=== PATIENT | female | born 1945 | race Caucasian/White ===

== ENCOUNTER 2024-12-04 14:38 | Outpatient (AMB) | payer MEDICARE, SELFPAY ==
--- NOTE | 2024-12-04 14:41 | MHC.OFFVIS ---
Vital Signs 12/04/24 14:43 Height 5 ft 6 in Weight 145 lb BMI 23.4 BP 185/80 H Blood Pressure Location Rt brachial Position Sitting Respiration 16 Pulse 63 Pulse Source Pulse Oximeter Pulse Oximetry (%) 97 Oxygen Delivery Method Room Air Intake Visit Reasons: LEFT HIP PAIN Intake Note: Patient states blood pressure is always high due to pain. Data Center Technician Required: No Accompanied by: Daughter Allergies environmental allergies Allergy (Mild, Verified 12/04/24 14:47) Unknown HPI Comments Details: The patient is a 79-year-old female presenting, accompanied by her daughter, with chronic left hip pain. The pain has been persistent and severe, impacting her daily activities significantly. She has a history of osteoarthritis, rheumatoid arthritis, and sciatica, which have contributed to her current condition. The patient has undergone physical therapy, which she completed despite significant difficulty. She has also tried various medications, including gabapentin, which caused dizziness, and oxycodone, which was ineffective this time. Previous interventions included a cortisone injection in the hip, which did not provide relief. The patient has been diagnosed with hip bursitis and torn tendons. 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 The patient reports that her pain is most severe in the hip and back, with additional discomfort in the groin area when lying down. She has a history of trying various treatments, including acupuncture and a sacroiliac belt, both of which were ineffective. The patient is scheduled for a sacroiliac joint injection tomorrow. Patient has also scheduled to undergo injections for her lower back in the near future. Recent MRI of the hip reviewed, results as per below. Patient is here to follow up with Orthopedic surgeon, has scheduled follow up appointment with them tomorrow. - Onset: Chronic - Quality: Severe and persistent - Primary Location: Left hip - Radiation: Groin area, back - Exacerbating Factors: Lying on the affected side - Relieving Factors: None effective - Interference: Daily activities, sleep - Affect: Pain is causing significant distress and impacting mood. - Analgesia: Current medications include oxycodone, ineffective. - Adverse Effects: Gabapentin caused dizziness. - Activities of Daily Living: Pain limits mobility and daily activities. - Aberrant Drug Related Behaviors: None reported. Review of Systems Const Details: - Musculoskeletal: Reports chronic left hip pain, groin discomfort, and back pain. - Neurological: Reports dizziness from gabapentin. - General: Reports difficulty sleeping due to pain. Physical Exam Vital Signs: Last Vital Signs Pulse 63 12/04/24 14:43 Resp 16 12/04/24 14:43 BP 185/80 H 12/04/24 14:43 Pulse Ox 97 12/04/24 14:43 Oxygen Delivery Method Room Air 12/04/24 14:43 BMI result Body Mass Index 23.4 General: awake, alert, oriented. Answers questions appropriately. Fully engaged in examination. Skin: warm, dry, intact HEENT: Normocephalic. Hearing intact. Cardiac: External chest normal in appearance. Respiratory: No cough, audible wheezing or stridor. Abdomen: without gross distension. MS: No obvious swelling or deformities. Able to transition from sit to stand unassisted. Ambulates with bilaterally normal heel strike and toe off Tenderness over midline lumbar vertebrae and lumbar paraspinal muscles Tenderness over left PSIS Left SI: Gaenslen positive, thigh thrust positive, SI compression positive SLR negative bilaterally Neurological: Oriented to person, place, time and situation. Thought process intact. No gait abnormalities appreciated. Psychiatric: Appropriate mood and affect. Good judgment and insight. Results Reviewed Results Reviewed: Assessment & Plan Assessment & Plan (1) Left hip pain: Code(s): M25.552 - Pain in left hip Category: Medical (2) Sacroiliac joint dysfunction of left side: Code(s): M53.3 - Sacrococcygeal disorders, not elsewhere classified Category: Medical (3) Lumbar spondylosis: Code(s): M47.816 - Spondylosis without myelopathy or radiculopathy, lumbar region Category: Medical Plan The patient is scheduled for a sacroiliac joint injection to evaluate its effect on her pain management. The plan includes monitoring the response to the injection to assess the effectiveness of the treatment. Patient was advised that we are interventional pain management, she was referred back to her primary care doctor to discuss continuation of her oral opioid medications. Patient would likely benefit from dose increase to better control her pain utilizing best practices for prescribing opioid medications including opioid risk assessment, monitoring INSURANCE BUSINESS ANALYST, pill counts, random UDS, signed contracts. Patient was also advised to follow up with orthopedic surgeon regarding her MRI findings to develop treatment plan based on the results. Lengthy discussion with the patient and her daughter regarding alternative medication options including Lyrica and Memantine but they are not interested in trialing new medications at this time given patient's poor responses in the past. Patient states that she feels that she has already tried to many medications and is frustrated that nothing is helping her. Given we focus on interventional pain management and they are already receiving interventional pain management with Dr. Keys's office there is limited treatment options that we can offer at this time. If they wish to transition to our practice for interventional pain management after being cleared by orthopedic surgeons and determining no surgery is necessary then further interventional treatment options could be discussed. Patient was informed and verbally consented to the use of an ambient scribe for clinic note documentation during this visit. Patient Instructions: - Attend the scheduled sacroiliac joint injection appointment. - Keep a pain diary to track the effectiveness of the injection. - Follow up with your primary care physician to discuss pain management and medication adjustments. Coding Level of Care Code New Pt Level 4 (53673) Complex EM visit Add On G2211 Diagnoses Left hip pain M25.552 Sacroiliac joint dysfunction of left side M53.3 Lumbar spondylosis M47.816
[2024-12-04 14:43] VITALS: BP 185/80; PULSE 63; RESP 16; O2SAT 97; BMI 23.4
--- OUTSIDE RECORDS SUMMARY | 2024-12-04 15:04 | XMS_ITS | Encounter Summary ---
Author Organization [facility] Address [address] [place] [address] Care Team Providers Care Help Desk Technician Name Role Phone Pcp, No Primary Care Provider Unavailabl e Encounter Details Date Type Department Care Team (Late st Contact Info) Description 05/02/2023 Scanned Document [facility] [address] [place] [address] Shyann Garcia PA-C [address] [facility] [address] [place] [address] Social History Tobacco Use Types Packs/Day Years Used Date Smoking Tobacco: Never Assessed Comments Unknown Sex and Gender Information Value Date Recorded Sex Assigned at Female 04/12/2023 11:02 AM EST Legal Sex Female 11:00 AM EST Gender Identity Female 04/12/2023 11:02 AM EST Sexual Orientation Other 04/12/2023 11 :02 AM EST documented as of this encounter Plan of Treatment Not on file documented as of this encounter Visit Diagnoses Not on filedocumented in this encounter Care Teams Help Desk Technician Relationship Specialty Start Date End Date Pcp, No PCP - General General Medicine 06/02/23 OJ MONDRAGON [id number] [place] [address] [address] [place] [address] Primary Care Provider Internal Medicine 06/05/23 documented as of this encounter
--- OUTSIDE RECORDS SUMMARY | 2024-12-04 15:04 | XMS_ITS | Encounter Summary ---
Author Organization [facility] Address [address] [place] [address] Care Team Providers Care Beck Tender Name Role Phone Unavailable Primary Care Provider Unavailabl e Encounter Details Date Type Department Care Team (Late st Contact Info) Description 04/08/2024 Lab Requisition [facility] Main Lab [address] [facility] [place] [address] Dena Caruso MD [address] [place] [id number] Unspecified fall, initial encounter Social History Tobacco Use Types Packs/Day Years Used Date Smoking Tobacco: Never Assessed Comments Unknown Sex and Gender Information Value Date Recorded Sex Assigned at Not on file Legal Sex Female 1:31 PM EDT Gender Identity Not on file Sexual Orientation Not on file documented as of this encounter Plan of Treatment Not on file documented as of this encounter Procedures Procedure Name Priority Date/Time Associated Diagnosis Comments COMPLETE BLOOD COUNT Routine 04/08/2024 6:08 AM EST Unspecified fall, initial encounter BASIC METABOLIC PANEL Routine 04/08/2024 6:08 AM EST Unspecified fall, initial encounter documented in this encounter Results * (ABNORMAL) Complete blood count (04/08/2024 6:08 AM EST) WBC 4.8 4.8 - 10.8 K/[facility] LAB HEMETOLOGY METHOD 04/08/2024 12:[address] [facility] RBC 4.80 3.80 - 4.80 M/[facility] LAB HEMETOLOGY METHOD 04/08/2024 12:[address] [facility] Hemoglobin 14.8 11.5 - 16.0 g/dL LAB HEMETOLOGY METHOD 04/08/2024 12:43 PM [facility] Hematocrit 46.6 35.0 - 47.0 % LAB HEMETOLOGY METHOD 04/08/2024 12:43 PM [facility] MCV 96.9 79.0 - 98.0 FL LAB HEMETOLOGY METHOD 04/08/2024 12:43 PM [facility] MCH 30.8 27.0 - 32.0 pcg LAB HEMETOLOGY METHOD 04/08/2024 12:43 PM [facility] MCHC 31.8(L) 32.0 - 37.0 g/dL LAB HEMETOLOGY METHOD 04/08/2024 12:43 PM [facility] RDW 14.1 11.0 - 15.0 % LAB HEMETOLOGY METHOD 04/08/2024 12:43 PM [facility] Platelets 279 130 - 400 K/mcL LAB HEMETOLOGY METHOD 04/08/2024 12:43 PM [facility] MPV 10.1 7.0 - 11.0 FL LAB HEMETOLOGY METHOD 04/08/2024 12:43 PM [facility] NRBC 0.0 <1.0 % LAB HEMETOLOGY METHOD 04/08/2024 12:43 PM [facility] NRBC Absolute 0.00 <0.10 K/mcL LAB HEMETOLOGY METHOD 04/08/2024 12:43 PM [facility] Blood Venous blood specimen / Unknown Venipuncture / Unknown 04/08/2024 6:08 AM EST 04/08/2024 12:12 PM EST us Dena Caruso MD LAB BLOOD ORDERABLES Final Res ult [facility] [address] [place] [address], [place] [phone] * (ABNORMAL) Basic metabolic panel (04/08/2024 6:08 AM EST) Sodium 141 133 - 145 mmol/L LAB CHEMISTRY METHOD 04/08/2024 1:20 PM [facility] Potassium 4.7 3.5 - 5.5 mmol/L LAB CHEMISTRY METHOD 04/08/2024 1:20 PM [facility] Chloride 108 96 - 110 mmol/L LAB CHEMISTRY METHOD 04/08/2024 1:20 PM [facility] CO2 28 21 - 32 mmol/L LAB CHEMISTRY METHOD 04/08/2024 1:20 PM [facility] Anion Gap 5 3 - 11 LAB CHEMISTRY METHOD 04/08/2024 1:20 PM [facility] Glucose 69(L) 70 - 100 mg/dL LAB CHEMISTRY METHOD 04/08/2024 1:20 PM [facility] BUN 20 5 - 25 mg/dL LAB CHEMISTRY METHOD 04/08/2024 1:20 PM [facility] Creatinine 0.98 0.50 - 1.10 mg/dL LAB CHEMISTRY METHOD 04/08/2024 1:20 PM [facility] eGFR 60 >=60 mL/min/1. 73m2 LAB CHEMISTRY METHOD 04/08/2024 1:20 PM [facility] Comment:Calculation based on the Chronic Kidney Disease Epidemiology Collaboration (CKD-EPI) equation refit without adjustment for race. BUN/Creatinine Ratio 20.4 LAB CHEMISTRY METHOD 04/08/2024 1:20 PM [facility] Calcium 9.3 8.5 - 10.5 mg/dL LAB CHEMISTRY METHOD 04/08/2024 1:20 PM [facility] Blood Venous blood specimen / Unknown Venipuncture / Unknown 04/08/2024 6:08 AM EST 04/08/2024 12:12 PM EST us Adnan M Dahdul MD LAB BLOOD ORDERABLES Final Res ult [facility] [address] [place] [address], documented in this encounter Visit Diagnoses Diagnosis Unspecified fall, initial encounter documented in this encounter
--- OUTSIDE RECORDS SUMMARY | 2024-12-04 15:05 | XMS_ITS | Patient Health Record ---
Author Organization [facility] Address [address] [place] [address] Care Team Providers Care Drawbench Operator Name Role Phone Brody Rhodes Primary Care Provider Unavailabl e Black, Evangelina Unavailable [phone] Allergies No Known Allergies Reason For Referral No Information Medications Medication SIG (Take, Route, Frequency, Duration) Notes Start Date End Date Status Cephalexin 500 MG 1 capsule Orally Fou r times a day; Duration: 10 days 01/30/2023 Not-Taking Xarelto 20 MG 1 tablet with food Orally Once a day Active Cephalexin 500 MG 1 capsule Orally twi ce a day; Duration: 10 days 06/08/2023 Not-Taking Folic Acid 1 MG 1 tablet Orally Once a day Active Levothyroxine Sodium 75 MCG 1 tablet in the morning on an empty stomach Orally Once a day Active Albuterol Sulfate HFA Active Vitamin D3 Active Methotrexate 2.5 MG as directed Orally Active Dilacor XR Active Lisinopril 5 MG 1 tablet Orally Once a day Active Social History Tobacco Use: Social History Observation Description Date Details (start date - stop date) Former Smoker NA - NA Tobacco Use/Smoking Question Answer Notes Are you a: former smoker Additional Findings: Tobacco Non-User Current no n-smoker Alcohol Screen Question Answer Notes Did you have a drink containing alcohol in the p ast year? No Points 0 Interpretation Negative Tobacco use other than smoking: Question Answer Notes Are you an other tobacco user? No Problems Problem Type SNOMED Code ICD Code Onset Dates Problem Status W/U Status Risk Notes Problem Non-pressure chronic ulcer of other part of left foot limited to breakdown of skin (L97.521) Active confirmed Problem Pain in left foot (178950201455327 ) Pain in left foot (M79.672) Active confirmed Problem Acquired hallux valgus (28736466) Hallux valgus (acquired), left foot (M20.12) Active confirmed Problem Acquired hallux valgus (72624111) Hallux valgus (acquired), right foot (M20.11) Active confirmed Problem Acquired hammer toe of right foot (975938052577584 5) Hammer toe of right foot (M20.41) Active confirmed Problem Acquired hammer toe of left foot (177461004595161 3) Hammer toe of left foot (M20.42) Active confirmed Problem Metatarsalgia of left foot (100286413664350 ) Metatarsalgia of left foot (M77.42) Active confirmed Problem Pain in right foot (140809321596424 ) Right foot pain (M79.671) Active confirmed Problem Plantar flexed metatarsal bone of right foot (M21.6X1) Active confirmed Problem Plantarflexion deformity of left foot (728203778368266 1) 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) Active confirmed Problem Rheumatoid arthritis (36920023) Rheumatoid arthritis involving right foot with positive rheumatoid factor (M05.771) Active confirmed Problem Rheumatoid nodule (97554359) Rheumatoid nodule (M06.30) Active confirmed Problem Ulcer of left foot (disorder) (832083220) Ulcer of left foot with fat layer exposed (L97.522) Active confirmed Improvement Problem Rheumatoid arthritis (70368866) Rheumatoid arthritis involving left foot with positive rheumatoid factor (M05.772) Active confirmed Plan Of Treatment Pending Test Test Name Order Date MRI : Foot, left 03/09/2023 *Wound Culture 01/30/2023 CULTURE, BACTERIA, OTHER 06/08/2023 38615- Debride <25 sq cm 06/22/2023 [id number] SKIN/TISSUE 05/01/2023 [id number] SKIN/TISSUE 02/23/2023 [id number] SKIN/TISSUE 03/09/2023 69183 I&D ABSCESS- SIMPLE,SINGLE 023 [id number] I&D ABSCESS- SIMPLE,SINGLE 024 Insurance Providers Payer Name Payer Address Payer Phone Subscriber Number Group Number Insured Name Patient Relationship to Insured Coverage Start Date Coverage End Date Medicare National Govt [employer] [address] [place] [address] [id number] Unique Mackey Self - patient is the insured [employer] [address] [place] [address] [phone] [id number] Unique Mackey Self - patient is the insured Medical (General) History Medical History History ICD Code Arthritis- Rheumatoid asthma Back,Hip,and Knee pain Cataracts Gall bladder problems Glaucoma High blood pressure Numbness Sciatica Stroke thyroid Measles Vertigo Surgical History Surgery Date(Month/Year) gall bladder 1965 foot surgery 1989' right hip replacement 2016 tubal ligation 1972
--- OUTSIDE RECORDS SUMMARY | 2024-12-04 15:05 | XMS_ITS ---
Author Name [facility] Organization Unknown Problems Problem Status Onset Date Problem Type Date of Resoluti on Source Pain in left ankle and joints of left foot active EncounterDiagnosisAct CCT Encounters Encounter Type Encounter Reason Primary Diagnosis Location Date Ambulatory [place] 06/06/2023 Ambulatory Pain in left ankle and joints of left foot Pain in left ankle and joints of left foot [facility] 06/06/2023 Care Team Organization Name Specialty Phone Email Start Date End Da te [facility] PCP Machine S[facility] 06/25/2023 08/21/2024 [facility] PCP,No Primary Care 06/06/2023 08/21/2024 [facility] 06/06/2023 06/06/2023 [facility] NO PCP Primary Care 06/06/2023 06/06/2023
== END 2024-12-04 15:53 | disposition home or self-care (01) ==
LOC: HO.PMC 14:38
PROVIDERS: PCP Nurse Practitioner Primary Care; Visit Provider Registered Nurse Emergency
DX: M25.552 Pain in left hip (principal); M53.3 Sacrococcygeal disorders, not elsewhere classified; M47.816 Spondylosis without myelopathy or radiculopathy, lumbar region
CPT/HCPCS: 99204; G2211

== ENCOUNTER → 2024-12-04 14:38 | Outpatient (BNVA) | payer MEDICARE, SELFPAY | PROVIDERS: PCP Nurse Practitioner Primary Care; Visit Provider Registered Nurse Emergency | DX: M25.552 Pain in left hip (principal); M53.3 Sacrococcygeal disorders, not elsewhere classified; M47.816 Spondylosis without myelopathy or radiculopathy, lumbar region | CPT/HCPCS: 99202 ==